=== PATIENT | female | born 1960 ===

== ENCOUNTER 2018-06-18 09:30 | Emergency (ER) | payer OTHER ==
[~2018-06-18] VITALS: Ht 167.6 cm; Wt 72.6 kg
[2018-06-18] MEDS ORDERED: WELLBUTRIN XL300 MG (09:53)
[2018-06-18] MEDS ORDERED: ASPIR-LOW81 MG (09:53)
[2018-06-18] MEDS ORDERED: SIMVASTATIN40 MG (09:53)
[2018-06-18] MEDS ORDERED: LABETALOL HCL200 MG (09:53)
[2018-06-18] MEDS ORDERED: CLOPIDOGREL BIS75 MG (09:53)
== END 2018-06-18 11:29 | disposition home or self-care (01) ==
LOC: ER 09:30
DX: J06.9 Acute upper respiratory infection, unspecified (principal)